=== PATIENT | female | born 1965 | race Two or more races ===

== ENCOUNTER 2016-06-02 07:34 | Emergency (ER) | payer OTHER ==
[2016-06-02 07:45] VITALS: TEMP 98.2; BMI 29.9
--- NOTE | 2016-06-02 08:43 | PDOC ---
History of Present Illness - General History Source: Patient Exam Limitations: No Limitations - History of Present Illness Initial Comments: CHIEF COMPLAINT: 51 y/o afebrile female with PMH HTN, HLD and diverticulitis c/ o diarrhea and left lower abdominal pain x 6 days. HISTORY OF PRESENT ILLNESS: The patient was seen by Dr. Bone on 05/13/16 and was started on PO cipro and flagyl for diverticulitis. She states she still has a few days left but for the past 6 days has been having watery/mucous diarrhea and left lower abdominal pain. She states this morning the pain became unbearable and she was very dizzy. She admits she is not eating much but is trying to stay hydrated with water. She did vomit this morning. She denies f/c, LYNCH, neck pain, CP, SOB, hematuria, dysuria. Vital signs on arrival are within normal limits. REVIEW OF SYSTEMS: GENERAL/CONSTITUTIONAL: No fever/chills. No weakness. No weight change. HEAD, EYES, EARS, NOSE AND THROAT: No change in vision. No ear pain or discharge. No sore throat. CARDIOVASCULAR: No chest pain or shortness of breath. RESPIRATORY: No cough, wheezing, or hemoptysis. GASTROINTESTINAL: +left lower abdominal pain and diarrhea. 1 episode of vomiting. GENITOURINARY: No dysuria, frequency, or change in urination. MUSCULOSKELETAL: No joint or muscle swelling or pain. No neck or back pain. SKIN: No rash or easy bruising. NEUROLOGIC: No headache, vertigo, loss of consciousness, or loss of sensation. PHYSICAL EXAM: GENERAL: The patient is awake, alert, and fully oriented, in no acute distress. She is slightly clammy appearing and appears uncomfortable, lying completely still in the ER bed. HEAD: Normal with no signs of trauma. ENT: Pupils equal, round and reactive to light, extraocular movements intact, sclera anicteric, conjunctiva clear. Neck supple. Mucous membranes slightly dry. LUNGS: Clear to auscultation bilaterally. Normal excursion. No respiratory distress or use of accessory muscles. CV: RRR, S1/S2, no MRG. Cap refill < 2 sec. ABDOMEN: Soft, non-distended, TTP of left lower quadrant and left upper quadrant with guarding. BACK: left flank pain with palpation. No CVA TTP b/l. EXTREMITIES: Normal range of motion, no edema. NEUROLOGICAL: Normal speech, normal gait. CN II-XII grossly intact. PSYCH: Normal mood, normal affect. SKIN: Warm, dry, normal turgor, no rashes or lesions noted. <Tracy Resedniz - Last Filed: 06/02/16 11:50> <Barbara Arias - Last Filed: 06/03/16 10:40> - General Chief Complaint: Pain Stated Complaint: ABD PAIN,RECTAL BLEEDING,VOMITING Time Seen by Provider: 06/02/16 08:42 Past History - Past Medical History Anemia: No Asthma: No Cancer: (precancers Pap smear) Cardiac Disorders: No COPD: No CHF: No Diabetes: No GI Disorders: Yes (diverticulitis?) Disorders: No HTN: Yes (started on hydrochlorothiazide approximately 3 days ago) Hypercholesterolemia: Yes Other medical history: potassium deficiency - Psycho/Social/Smoking Cessation Hx Suicidal Ideation: No Smoking Status: No Smoking History: Never smoked Number of Cigarettes Smoked Daily: 0 Information on smoking cessation initiated: No Hx Alcohol Use: No Drug/Substance Use Hx: No Substance Use Type: None <Tracy Resendiz - Last Filed: 06/02/16 11:50> <Barbara Arias - Last Filed: 06/03/16 10:40> - Past Medical History Allergies/Adverse Reactions: Allergies Allergy/AdvReac Type Severity Reaction Status Date / Time acetaminophen [From Percocet] Allergy Verified 06/02/16 07:41 oxycodone HCl [From Percocet] Allergy Verified 06/02/16 07:41 Home Medications: Ambulatory Orders Hydrochlorothiazide [Hctz -] 50 mg PO DAILY 04/26/12 Atenolol [Tenormin -] 50 mg PO DAILY 06/02/16 Atorvastatin Ca [Lipitor] 20 mg PO DAILY 06/02/16 Ciprofloxacin HCl [Cipro] 500 mg PO BID 06/02/16 Dicyclomine HCl 10 mg PO TID PRN 06/02/16 Metronidazole [Flagyl -] 500 mg PO QID 06/02/16 Potassium Chloride 10 meq PO DAILY 06/02/16 Tramadol HCl 50 mg PO Q4H #20 tablet MDD 300mg 06/02/16 *Physical Exam - Vital Signs Last Vital Signs Temp Pulse Resp BP Pulse Ox 98.2 F 96 H 18 146/90 97 06/02/16 07:40 06/02/16 07:40 06/02/16 07:40 06/02/16 07:40 06/02/16 07:40 <Tracy Resendiz - Last Filed: 06/02/16 11:50> - Vital Signs Last Vital Signs Temp Pulse Resp BP Pulse Ox 98.2 F 88 18 138/70 98 06/02/16 07:40 06/02/16 11:54 06/02/16 11:54 06/02/16 11:54 06/02/16 11:54 <Barbara Arias - Last Filed: 06/03/16 10:40> ED Treatment Course - LABORATORY CBC & Chemistry Diagram: 06/02/16 09:25 06/02/16 09:25 <Tracy Resendiz - Last Filed: 06/02/16 11:50> - LABORATORY CBC & Chemistry Diagram: 06/02/16 09:25 06/02/16 09:25 - ADDITIONAL ORDERS Additional order review: 06/02/16 09:25 Urine Culture - Final Urine - Urine Clean Catch NO GROWTH OBTAINED 06/02/16 09:25 RBC 5.11 MCV 82.0 MCHC 33.5 RDW 14.4 MPV 8.8 Neutrophils % 67.3 Lymphocytes % 24.9 D Monocytes % 6.4 Eosinophils % 0.7 Basophils % 0.7 - Medications Given in the ED: ED Medications Discontinued Medications Generic Name Dose Route Start Last Admin Trade Name Freq PRN Reason Stop Dose Admin Sodium Chloride 1,000 mls @ 1,000 mls/hr 06/02/16 09:14 06/02/16 09:34 Normal Saline - IV 06/02/16 10:13 1,000 mls/hr ASDIR STA Administration Loperamide HCl 2 mg 06/02/16 10:52 06/02/16 11:17 Imodium - PO 06/02/16 10:53 2 mg ONCE ONE Administration Morphine Sulfate 4 mg 06/02/16 09:14 06/02/16 09:34 Morphine Injection - IVPUSH 06/02/16 09:15 4 mg ONCE ONE Administration Ondansetron HCl 4 mg 06/02/16 10:52 06/02/16 11:17 Zofran Injection IVPUSH 06/02/16 10:53 4 mg ONCE ONE Administration Tramadol HCl 50 mg 06/02/16 10:52 06/02/16 11:17 Ultram - PO 06/02/16 10:53 50 mg ONCE ONE Administration <AriasBarbara - Last Filed: 06/03/16 10:40> Medical Decision Making - Medical Decision Making A/P: 51 y/o female with diverticulitis who has worsening symptoms despite almost 2 weeks of PO antibiotics. Suspect she needs IV abx. She had an outpatient CT scan of her abd/pelvis on 05/31/16. Will call radiologist for a read. Plan is as follows: 1. Labs 2. UA/culture 3. IV fluids 4. IV morphine CT scan abd/pelvis 05/31/16 IMPRESSION: Mild diffuse fatty infiltrate of the liver with left lobe cyst. Right ovarian cyst. Fecal retention with no evidence of diverticulitis or acute pathology within the abdomen or pelvis. Labs unremarkable. The patient states she feels slightly better but still has discomfort. Spoke with Dr. Bone. We discussed her labs, as well as her CT scan results. He suggested she provide a stool sample, take antidiarrheals and try to make it to tomorrow to keep her appointment with him. Ordered stool culture, O&P and c-diff. Ordered IV zofran, PO imodium and PO tramadol The patient was unable to provide stool. She states the tramadol did help slightly. Informed her of my conversation with Dr. Bone and she states she does feel well enough to go home. She assures me she will keep her appointment with Dr. Bone scheduled for tomorrow. Suggested she take Imodium at home for the diarrhea. Will send rx for tramadol. Instructed her to continue to drink plenty of fluids and return to the ER immediately with any worsening or concerning symptoms. The patient verbalizes understanding of all instructions, has no further questions and is awaiting discharge. <Tracy Resendiz - Last Filed: 06/02/16 11:50> *DC/Admit/Observation/Transfer <Tracy Resendiz - Last Filed: 06/02/16 11:50> - Attestations Physician Attestion: I reviewed the case with the mid-level practitioner and agree with the mid- level practitioner's assessment, diagnosis and disposition. <HugoBabrara - Last Filed: 06/03/16 10:40> Diagnosis at time of Disposition: Diarrhea Qualifiers: Diarrhea type: unspecified type Qualified Code(s): R19.7 - Diarrhea, unspecified - Discharge Dispostion Disposition: HOME Condition at time of disposition: Stable - Prescriptions Prescriptions: Tramadol HCl 50 mg PO Q4H #20 tablet MDD 300mg - Referrals Referrals: Maxx Bone MD [Staff Physician] - - Patient Instructions Printed Discharge Instructions: DI for Diarrhea and Traveler's Diarrhea -- Adult, Loperamide Additional Instructions: Discharge Instructions: -Take over the counter Imodium to help with diarrhea -Take Tramadol for pain as prescribed; may cause drowsiness. -Continue drinking plenty of fluids -Keep your follow up appointment scheduled for tomorrow with Dr. Bone -Return to the ER immediately with any worsening or concerning symptoms - Post Discharge Activity Work/School Note: Back to Work
[2016-06-02] MEDS ORDERED: morphine CARPU-JECT 4 MG/1 ML DISP.SYRIN IVPUSH ONE (09:14)
[2016-06-02] MEDS ORDERED: SODIUM CHLORIDE 1,000 ML IV STA (09:14)
[2016-06-02] MEDS ORDERED: morphine CARPU-JECT 4 MG/1 ML DISP.SYRIN ONE (09:28)
[2016-06-02 09:43] LABS: BASOPHIL 0.7 % (0-2.0); EOSINOPHIL 0.7 % (0-4.5); MCH 27.5 pg (25.7-33.7); MCHC 33.5 g/dl (32.0-36.0); MEAN PLT VOLUME 8.8 fl (7.5-11.1); NEUTROPHILS 67.3 % (42.8-82.8); PLATELET COUNT 294 K/MM3 (134-434); RDW 14.4 % (11.6-15.6); WHITE BLOOD COUNT 6.8 K/mm3 (4.0-10.0)
[2016-06-02 09:48] LABS: URINE APPEARANCE CLEAR; URINE BILIRUBIN NEGATIVE (NEGATIVE); URINE BLOOD NEGATIVE (NEGATIVE); URINE COLOR STRAW; URINE GLUCOSE (UA) NEGATIVE (NEGATIVE); URINE KETONE NEGATIVE (NEGATIVE); URINE LEUK ESTERASE NEGATIVE (NEGATIVE); URINE NITRITE NEGATIVE (NEGATIVE); URINE PROTEIN NEGATIVE (NEGATIVE); URINE UROBILINOGEN NEGATIVE E.U./dl (0.2-1.0)
[2016-06-02 10:00] LABS: ALK PHOS 87 U/L (45-117); ANION GAP 7 (8-16); CALCIUM 9.1 mg/dL (8.5-10.1); CO2 33 mmol/L (21-32); CREATININE 0.8 mg/dL (0.55-1.02); GLUCOSE,RANDOM 101 mg/dL (74-106); SGPT/ALT 46 U/L (12-78); TOT PROT 7.1 g/dl (6.4-8.2)
[2016-06-02 10:03] LABS: SGOT/AST 31 U/L (15-37)
[2016-06-02] MEDS ORDERED: ONDANSETRON 4 MG/2 ML VIAL IVPUSH ONE (10:52)
[2016-06-02] MEDS ORDERED: LOPERAMIDE HCL 2 MG CAPSULE PO ONE (10:52)
[2016-06-02] MEDS ORDERED: traMADol HCL 50 MG TABLET PO ONE (10:52)
[2016-06-02] MEDS ORDERED: traMADol HCL 50 MG TABLET ONE (11:12)
[2016-06-02] MEDS ORDERED: ONDANSETRON 4 MG/2 ML VIAL ONE (11:12)
[2016-06-02] MEDS ORDERED: LOPERAMIDE HCL 2 MG CAPSULE ONE (11:12)
[2016-06-02 11:55] VITALS: BP 138/70; PULSE 88
== END 2016-06-02 11:57 | disposition home or self-care (01) ==
LOC: JER 07:34
PROC: 3E0337Z Introduction of Electrolytic and Water Balance Substance into Peripheral Vein, Percutaneous Approach (ICD-10-PCS; principal; 2016-06-02)
PROC: 3E033NZ Introduction of Analgesics, Hypnotics, Sedatives into Peripheral Vein, Percutaneous Approach (ICD-10-PCS; 2016-06-02)
PROC: 3E033GC Introduction of Other Therapeutic Substance into Peripheral Vein, Percutaneous Approach (ICD-10-PCS; 2016-06-02)
DX: K57.20 Diverticulitis of large intestine with perforation and abscess without bleeding (principal)
CPT/HCPCS: 36415; 80053; 81003; 82272; 83605; 84703; 85025; 87086; 96361; 96374; 96375; 99284-25